=== PATIENT | male | born 1995 | race Caucasian/White ===

== ENCOUNTER 2018-09-22 16:55 | Emergency (ER) | payer OTHER ==
[2018-09-22 17:18] VITALS: BP 143/99
--- NOTE | 2018-09-22 17:19 | UC ---
UC General HPI - HPI Summary HPI Summary: 22-year-old male comes in with a chief complaint of receiving information that of woman he had sex with one month ago was positive for gonorrhea. Patient is asymptomatic he does not have any burning with urination no lesions of fevers or chills no abdominal pain. - History of Current Complaint Stated Complaint: PERSONAL Time Seen by Provider: 09/22/18 17:08 - Allergy/Home Medications Allergies/Adverse Reactions: Allergies Allergy/AdvReac Type Severity Reaction Status Date / Time No Known Allergies Allergy Verified 09/22/18 17:16 Home Medications: Home Medications NK [No Home Medications Reported] 09/22/18 [History Confirmed 09/22/18] PMH/Surg Hx/FS Hx/Imm Hx Previously Healthy: Yes - Family History Known Family History: Positive: Non-Contributory Review of Systems All Other Systems Reviewed And Are Negative: Yes Constitutional: Positive: Negative Skin: Positive: Negative Eyes: Positive: Negative ENT: Positive: Negative Respiratory: Positive: Negative Cardiovascular: Positive: Negative Gastrointestinal: Positive: Negative Genitourinary: Positive: Negative. Negative: Dysuria, Hematuria, Frequency, Urgency, Vaginal/Penile Burning, Vaginal/Penile Itching, Vaginal/Penile Discharge, Vaginal/Penile Pain, Vaginal/Penile Tenderness, Ulceration/Lesion Motor: Positive: Negative Neurovascular: Positive: Negative Musculoskeletal: Positive: Negative Neurological: Positive: Negative Psychological: Positive: Negative Is Patient Immunocompromised?: No Physical Exam Triage Information Reviewed: Yes Appearance: Well-Appearing, No Pain Distress, Well-Nourished Vital Signs Reviewed: Yes Eye Exam: Normal Eyes: Positive: Conjunctiva Clear ENT: Positive: Pharynx normal Neck exam: Normal Neck: Positive: Supple Respiratory: Positive: Lungs clear, Normal breath sounds, No respiratory distress Cardiovascular: Positive: RRR Abdomen Description: Positive: Nontender, Soft. Negative: CVA Tenderness (R), CVA Tenderness (L) Bowel Sounds: Positive: Present Musculoskeletal Exam: Normal Musculoskeletal: Positive: Strength Intact, ROM Intact Neurological Exam: Normal Neurological: Positive: Alert, Muscle Tone Normal Psychological Exam: Normal Psychological: Positive: Age Appropriate Behavior Skin Exam: Normal Course/Dx - Course Course Of Treatment: With the patient being asymptomatic it's unlikely that he is gonorrhea however chlamydia is deaf I possibility. In the clinic the patient was treated with Rocephin 250 mg IM and azithromycin 1 g by mouth. Urine was collected for gonorrhea and chlamydia. - Diagnoses Provider Diagnosis: Encounter for assessment of sexually transmitted disease exposure Discharge - Sign-Out/Discharge Documenting (check all that apply): Patient Departure All imaging exams completed and their final reports reviewed: No Studies - Discharge Plan Condition: Stable Disposition: HOME Patient Education Materials: Sexually Transmitted Diseases (ED), Safe Sex (ED) Referrals: [facility] [Outside] Additional Instructions: FOLLOW UP WITH YOUR DOCTOR IF NOT COMPLETELY IMPROVED. YOU WERE TREATED WITH ROCEPHIN 250MG IM AND AZITHROMYCIN 1GM PO. GET REEVALUATED SOONER IF YOUR CONDITION WORSENS OR ANY QUESTIONS OR CONCERNS. - Billing Disposition and Condition Condition: STABLE Disposition: Home
[2018-09-22] MEDS ORDERED: Azithromycin TAB* 250 MG PO ONE (17:28)
[2018-09-22] MEDS ORDERED: cefTRIAXone VIAL(*) 250 MG VIAL IM ONE (17:28)
[2018-09-22] MEDS ORDERED: Lidocaine 1% MPF* 2 ML VIAL ONE (17:33)
[2018-09-23 15:00] LABS: Neisseria gonorrhoeae (GC) RNA Negative (Negative)
== END 2018-09-22 17:53 | disposition home or self-care (01) ==
LOC: UCCORT 16:55
DX: Z20.2 Contact with and (suspected) exposure to infections with a predominantly sexual mode of transmission (principal)
CPT/HCPCS: 87491; 87591; 96372; 99202; A9270-GY; G0463; J0696